=== PATIENT | male | born 1950 | race Caucasian/White ===

== ENCOUNTER 2022-12-05 07:39 | Emergency (ER) | payer OTHER ==
[~2022-12-05] VITALS: Ht 172.7 cm; Wt 111.5 kg
--- NOTE | ~2022-12-05 | EKG ---
[facility] [address] [facility] [place], [place] [address] Draft EK completed, results pending confirmation PATIENT NAME: AMY LAW Electrocardiogram DATE OF : 48 PHYSICIAN: PRELIMINARY REPORT #: [id number] REPORT IS CONFIDENTIAL AND NOT TO BE RELEASED WITHOUT AUTHORIZATION
[2022-12-05] MEDS ORDERED: METOPROLOL TART50 MG PO (07:52)
[2022-12-05] MEDS ORDERED: ATORVASTATIN CA40 MG PO (07:52)
[2022-12-05] MEDS ORDERED: ASPIRIN325 MG PO (07:53)
[2022-12-05 07:59] LABS: BASOPHILS 0.6 % (0-2); EOSINOPHILS 1.5 % (0-6); HEMATOCRIT 40.9 % (35.0-50.0); HEMOGLOBIN 13.8 g/dL (12.0-18.0); LYMPHOCYTES 26.4 % (24-44); MCH 31.5 (27-36); MCHC 33.7 g/dl (30-36); MCV 93.5 fl (81-99); MONOCYTES 8.9 % (0-12); NEUTROPHILS 62.6 % (39-80); PLATELET COUNT 200 K/uL (140-440); RBC 4.37 M/ul (4.3-5.7)
[2022-12-05 08:16] LABS: ALBUMIN 3.8 g/dL (3.4-5.0); ANION GAP 13.7 (7-21); BILIRUBIN, TOTAL 0.6 ng/dL (0.2-1.0); BUN/CREATININE RATIO 17.09 (6.0-28.6); CALCIUM 9.3 mg/dL (8.5-10.1); CREATININE, SERUM 1.17 mg/dL (0.70-1.30); POTASSIUM 3.7 mmol/L (3.5-5.1); PROTEIN, TOTAL 7.6 g/dL (6.4-8.2)
[2022-12-05 15:14] VITALS: BP 151/60
--- NOTE | 2022-12-05 22:04 | EKG ---
[facility] [address] [facility] [place], [place] [address] Signed Normal sinus rhythm Normal ECG When compared with ECG of 05-DEC-2022 07:38, (Unconfirmed) No significant change was found Confirmed by JOSTIN GARCIA MD ([id number]) on 12/05/2022 10:04:26 PM Electronically Signed By: JOSTIN GARCIA 12/05/22 2204 PATIENT NAME: THANHAMY Electrocardiogram DATE OF : 48 PHYSICIAN: JOSTIN GARCIA REPORT #: [id number] REPORT IS CONFIDENTIAL AND NOT TO BE RELEASED WITHOUT AUTHORIZATION
--- NOTE | 2022-12-05 22:05 | EKG ---
[facility] [address] [facility] [place], [place] [address] Signed Sinus bradycardia Otherwise normal ECG When compared with ECG of 05-DEC-2022 07:39, (Unconfirmed) No significant change was found Confirmed by JOSTIN GARCIA MD ([id number]) on 12/05/2022 10:04:56 PM Electronically Signed By: JOSTIN GARCIA 12/05/22 2205 PATIENT NAME: THANHAMY Electrocardiogram DATE OF : 48 PHYSICIAN: JOSTIN GARCIA REPORT #: [id number] REPORT IS CONFIDENTIAL AND NOT TO BE RELEASED WITHOUT AUTHORIZATION
[2023-02-06] MEDS ORDERED: CEFDINIR300 MG PO (16:31)
[2023-02-06] MEDS ORDERED: FLOMAX0.4 MG PO (16:34)
== END 2022-12-05 15:04 | disposition short-term general hospital (02) ==
LOC: ED 07:39
PROVIDERS: Internal Medicine
DX: I25.110 Atherosclerotic heart disease of native coronary artery with unstable angina pectoris (principal); U07.1 COVID-19; Z95.5 Presence of coronary angioplasty implant and graft; Z79.899 Other long term (current) drug therapy; Z79.82 Long term (current) use of aspirin
CPT/HCPCS: 36415; 71045; 80053; 84484; 85025; 93005; 93010; 96374; 99285-25; C9803; J2405; J7040; U0002

== ENCOUNTER 2023-01-28 12:11 | Emergency (ER) | payer MEDICARE, OTHER ==
[~2023-01-28] VITALS: Ht 172.7 cm; Wt 109.3 kg
[~2023-01-28 12:11] MED LIST: ASPIRIN325 MG PO; ATORVASTATIN CA40 MG PO; METOPROLOL TART50 MG PO
[2023-01-28] MEDS ORDERED: METOPROLOL SUCC50 MG PO (12:20)
[2023-01-28] MEDS ORDERED: DOXYCYCLINE HY100 MG PO (12:20)
[2023-01-28] MEDS ORDERED: METFORMIN HCL500 MG PO (12:20)
[2023-01-28] MEDS ORDERED: ATORVASTATIN CA80 MG PO (12:20)
[2023-01-28] MEDS ORDERED: CLOPIDOGREL75 MG PO (12:20)
[2023-01-28 13:22] LABS: BILIRUBIN, URINE NEGATIVE (negative); BLOOD/HGB, URINE LARGE (Negative); KETONE, URINE NEGATIVE (Negative); LEUK ESTERASE, URINE TRACE (negative); NITRITE, URINE POSITIVE (negative); PH, URINE 8.5 (5-7)
[2023-01-28 13:34] LABS: BACTERIA, URINE RARE /hpf (negative); CASTS, URINE NONE SEEN \\lpf; COLLECTION TYPE, URINE CLEAN CATCH; CRYSTALS, URINE NONE SEEN (0-1+); EPITHELIAL CELLS, URINE SQUAMOUS 1+ /lpf (0-1+); RED BLOOD CELLS, URINE >50 /hpf (0-5); REFLEX CULTURE, URINE No (No)
[2023-01-28] MEDS ORDERED: FLOMAX0.4 MG PO (13:49)
[2023-01-28 14:08] VITALS: BP 154/72
== END 2023-01-28 14:08 | disposition home or self-care (01) ==
LOC: ED 12:11
PROVIDERS: Emergency Medicine
DX: R33.9 Retention of urine, unspecified (principal); I10 Essential (primary) hypertension; Z95.5 Presence of coronary angioplasty implant and graft; Z79.84 Long term (current) use of oral hypoglycemic drugs; Z79.82 Long term (current) use of aspirin; Z79.899 Other long term (current) drug therapy
CPT/HCPCS: 51702; 51798; 81001; 99283

== ENCOUNTER 2023-01-29 10:52 | Emergency (ER) | payer OTHER, MEDICARE ==
[~2023-01-29] VITALS: Ht 172.7 cm; Wt 109.3 kg
[~2023-01-29 10:52] MED LIST changes: +ATORVASTATIN CA80 MG PO; +CLOPIDOGREL75 MG PO; +DOXYCYCLINE HY100 MG PO; +FLOMAX0.4 MG PO; +METFORMIN HCL500 MG PO; +METOPROLOL SUCC50 MG PO
--- OUTSIDE RECORDS SUMMARY | 2023-01-29 10:54 | XMS ---
PreManage Notification: AMY LAW Security Night Manager Events No recent Security Events currently on file CRITERIA MET - [facility] - 2 Visits in 30 Days CARE PROVIDERS There are no care providers on record at this time. Alvarez has no Care Guidelines for this patient. Vikram VISIT COUNT (12 MO.) [address] [facility] TOTAL 3 NOTE: Visits indicate total known visits. ED/C VISIT TRACKING (12 MO.) 01/29/2023 10:[address] [facility] [place] TYPE: Emergency COMPLAINT: - URINE PROBLEM 01/28/2023 12:12 [facility] [place] TYPE: Emergency COMPLAINT: - URINATING BLOOD 12/05/2022 07:40 [facility] TYPE: Emergency COMPLAINT: - CHEST PAIN DIAGNOSES: - Atherosclerotic heart disease of [place] coronary artery with unstable angina pectoris - COVID-19 - prison (current) use of aspirin - Other chest pain - Other salvage determiner (current) drug therapy - Presence of coronary angioplasty implant and graft INPATIENT VISIT TRACKING (12 MO.) [facility] DIAGNOSES: - Abdominal aortic aneurysm, without rupture, unspecified - Encounter for screening, unspecified - Other acute postprocedural pain 12/05/2022 16:31 [facility] TYPE: Medical Surgical COMPLAINT: - CHEST PAIN DIAGNOSES: 0. Atherosclerotic heart disease of [place] coronary artery with unstable angina pectoris 1. Non-ST elevation (NSTEMI) myocardial infarction 2. Stenosis of coronary artery stent, initial encounter 3. Atherosclerotic heart disease of [place] coronary artery with unstable angina pectoris 4. Type 2 diabetes mellitus without complications 5. Infrarenal abdominal aortic aneurysm, without rupture 6. Hyperlipidemia, unspecified 7. Presence of coronary angioplasty implant and graft 8. Personal history of nicotine dependence 9. Personal history of COVID-19 10. Other surgical procedures as the cause of abnormal reaction of the patient, or of later complication, without mention of misadventure at the time of the procedure 11. Other specified places as the place of occurrence of the external cause [email or web address]
[2023-01-29 13:53] LABS: BASOPHILS 0.3 % (0-2); EOSINOPHILS 1.3 % (0-6); HEMATOCRIT 36.5 % (35.0-50.0); HEMOGLOBIN 12.1 g/dL (12.0-18.0); LYMPHOCYTES 15.8 % (24-44); MCH 31.3 (27-36); MCHC 33.1 g/dl (30-36); MCV 94.7 fl (81-99); MONOCYTES 7.9 % (0-12); NEUTROPHILS 74.7 % (39-80); PLATELET COUNT 229 K/uL (140-440); RBC 3.85 M/ul (4.3-5.7); RDW 13.2 (10.5-15.0)
[2023-01-29 14:09] LABS: ALBUMIN 3.6 g/dL (3.4-5.0); ALBUMIN/GLOBULIN RATIO 0.88 (1.1-2.4); BILIRUBIN, TOTAL 0.5 ng/dL (0.2-1.0); CALCIUM 9.2 mg/dL (8.5-10.1); PROTEIN, TOTAL 7.7 g/dL (6.4-8.2)
[2023-01-29 22:58] VITALS: BP 122/76
== END 2023-01-29 22:58 | disposition home or self-care (01) ==
LOC: ED 10:52
PROVIDERS: Emergency Medicine
DX: R31.9 Hematuria, unspecified (principal); I10 Essential (primary) hypertension; Z79.82 Long term (current) use of aspirin; Z79.02 Long term (current) use of antithrombotics/antiplatelets; Z79.899 Other long term (current) drug therapy
CPT/HCPCS: 36415; 51798; 80053; 85025; 99283

== ENCOUNTER 2024-03-24 22:05 | Emergency (ER) | payer OTHER, MEDICARE ==
[~2024-03-24] VITALS: Ht 172.7 cm; Wt 112.9 kg
[~2024-03-24 22:05] MED LIST changes: +CEFDINIR300 MG PO
[2024-03-24] MEDS ORDERED: ADULT ASPIRIN R81 MG PO (22:14)
[2024-03-24] MEDS ORDERED: FINASTERIDE5 MG PO (22:19)
[2024-03-24] MEDS ORDERED: NITROGLYCERIN PACKET TOP ONE (22:30)
[2024-03-24] MEDS ORDERED: ASPIRIN 81 MG CHEW PO ONE (22:30)
[2024-03-24 22:38] LABS: BASOPHILS 0.3 % (0-2); HEMATOCRIT 40.8 % (35.0-50.0); HEMOGLOBIN 13.6 g/dL (12.0-18.0); MCH 31.5 (27-36); MCHC 33.3 g/dl (30-36); MCV 94.6 fl (81-99); MONOCYTES 6.9 % (0-12); NEUTROPHILS 71.8 % (39-80); PLATELET COUNT 132 K/uL (140-440); RBC 4.31 M/ul (4.3-5.7); RDW 12.7 (10.5-15.0)
[2024-03-24 22:49] LABS: INR 1.01 (0.80-1.30); PROTIME 13.2 Sec (11.2-14.2)
[2024-03-24 22:59] LABS: ALBUMIN 3.9 g/dL (3.4-5.0); ALBUMIN/GLOBULIN RATIO 1.08 (1.1-2.4); ANION GAP 17.2 (7-21); BILIRUBIN, TOTAL 0.5 ng/dL (0.2-1.0); BUN/CREATININE RATIO 23.52 (6.0-28.6); CREATININE, SERUM 1.02 mg/dL (0.70-1.30); MAGNESIUM 2.1 mg/dL (1.8-2.4); POTASSIUM 5.2 mmol/L (3.5-5.1); PROTEIN, TOTAL 7.5 g/dL (6.4-8.2)
[2024-03-24] MEDS ORDERED: SODIUM CHLORIDE 0.9% 500 ML IV PRN (23:15)
[2024-03-25] MEDS ORDERED: CYCLOBENZAPRINE10 MG PO (00:03)
[2024-03-25] MEDS ORDERED: LIDOCAINE & ANTACID 35 ML BTL PO ONE (00:15)
[2024-03-25] MEDS ORDERED: CYCLOBENZAPRINE HCL 10 MG HOME.PACK PO ONE (00:15)
[2024-03-25 00:18] VITALS: BP 143/69
--- NOTE | 2024-03-25 15:14 | EKG ---
[facility] [address] [place] [address] Signed Sinus rhythm with occasional premature ventricular complexes Inferior infarct , age undetermined Abnormal ECG When compared with ECG of 05-DEC-2022 09:52, premature ventricular complexes are now present Confirmed by Thao Castillo MD () on 03/25/2024 3:14:03 PM Electronically Signed By: THAO CASTILLO MD 03/25/24 1514 PATIENT NAME: AMY LAW CAROLINE Electrocardiogram DATE OF : 48 PHYSICIAN: THAO CASTILLO MD REPORT #: [id number] REPORT IS CONFIDENTIAL AND NOT TO BE RELEASED WITHOUT AUTHORIZATION
== END 2024-03-25 00:18 | disposition home or self-care (01) ==
LOC: ED 22:05
PROVIDERS: Family Medicine
DX: R07.89 Other chest pain (principal); I25.2 Old myocardial infarction; I10 Essential (primary) hypertension; E78.00 Pure hypercholesterolemia, unspecified; Z95.5 Presence of coronary angioplasty implant and graft; Z79.01 Long term (current) use of anticoagulants; Z79.84 Long term (current) use of oral hypoglycemic drugs; Z79.82 Long term (current) use of aspirin; Z79.899 Other long term (current) drug therapy
CPT/HCPCS: 36415; 71045; 80053; 83735; 83880; 84484; 85025; 85610; 93005; 93010; 99285-25; A9270; J7040